=== PATIENT | female | born 1965 | race Caucasian/White ===

== ENCOUNTER 2018-12-03 16:22 | Emergency (ER) | payer BC ==
[2018-12-03] MEDS ORDERED: Oxymetazoline 0.05% Nasal Spray 15 ML Bottle NAS ONE (17:05)
--- NOTE | 2018-12-03 17:53 | EDM.PDOC ---
ED HPI GENERAL MEDICAL PROBLEM - General Chief Complaint: ENT Problem Stated Complaint: NOSE BLEED Time Seen by Provider: 12/03/18 16:22 Source of Information: Reports: Patient, Family History Limitations: Reports: No Limitations - History of Present Illness INITIAL COMMENTS - FREE TEXT/NARRATIVE: 53 y.o.w.f with a h/o HTN came with her friend to the ed due to a right sided nose bleed. Pt applied pressure to her nose without help. Pt stated, she was picking an objet from the floor when suddenly the bleed of her nose started. No N/V/D no dizziness no C/P, pt take 81 mg of ASA daily. No other acute medical issues. 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 - Related Data Allergies Allergy/AdvReac Type Severity Reaction Status Date / Time No Known Allergies Allergy Verified 12/03/18 17:37 Home Meds: Home Meds Albuterol [Ventolin HFA] 2 puff INH Q4H PRN 12/03/18 [History] Ibuprofen [Motrin] 600 mg PO DAILY PRN 12/03/18 [History] Losartan/Hydrochlorothiazide [Losartan-HCTZ 50-12.5 MG] 1 each PO DAILY [History] Simvastatin [Zocor] 40 mg PO BEDTIME 12/03/18 [History] ED ROS ENT - Review of Systems Review Of Systems: See Below Constitutional: Reports: No Symptoms HEENT: Reports: Nosebleed Respiratory: Reports: No Symptoms Cardiovascular: Reports: No Symptoms Endocrine: Reports: No Symptoms GI/Abdominal: Reports: No Symptoms : Reports: No Symptoms Musculoskeletal: Reports: No Symptoms Skin: Reports: No Symptoms Neurological: Reports: No Symptoms Psychiatric: Reports: No Symptoms Hematologic/Lymphatic: Reports: No Symptoms Immunologic: Reports: No Symptoms ED EXAM, ENT - Physical Exam Exam: See Below Exam Limited By: No Limitations General Appearance: Alert, WD/WN, Mild Distress Eye Exam: Bilateral Eye: Normal Inspection Ears: Normal External Exam Nose: Other (minor right sided anterior nose bleed) Mouth/Throat: Normal Inspection, Normal Lips Head: Atraumatic, Normocephalic Neck: Normal Inspection, Supple, Non-Tender, Full Range of Motion Respiratory/Chest: No Respiratory Distress, Lungs Clear, Normal Breath Sounds Cardiovascular: Normal Peripheral Pulses, Regular Rate, Rhythm, No Edema, No Gallop GI/Abdominal: Normal Bowel Sounds, Soft, Non-Tender, No Organomegaly, Pelvis Stable (Female) Exam: Deferred Rectal (Female) Exam: Deferred Back: Normal Inspection, Full Range of Motion Extremities: Normal Inspection, Normal Range of Motion, Non-Tender Neurological: Alert, Oriented, CN II-XII Intact, Normal Cognition, Normal Gait Psychiatric: Normal Affect, Normal Mood Skin: Warm, Dry, Intact, Normal Color, No Rash Lymphatic: No Adenopathy Course - Vital Signs Text/Narrative:: 53 y.o.w.f with a h/o HTN came with her friend to the ed due to a right sided nose bleed. Pt applied pressure to her nose without help. Pt stated, she was picking an objet from the floor when suddenly the bleed of her nose started. No N/V/D no dizziness no C/P, pt take 81 mg of ASA daily. No other acute medical issues. BP 145/93 RR 18 Pulse ox 96% on RA Pulse 124 Temp 36.8 PE: WNWD W F with right sided ant nosebleed Labs/Images: Not indicated Impression: Anterior epistaxis Tx: Ice to forehead, Afrin to right and left nostril. Reexam: Nosebleed subsided Plan: D/C with instructions Last Recorded V/S: Last Vital Signs Temp 36.6 C 12/03/18 17:15 Pulse Resp 18 12/03/18 17:15 BP 139/83 12/03/18 17:35 Pulse Ox 96 12/03/18 17:15 - Orders/Labs/Meds Meds: Medications Discontinued Medications Generic Name Dose Route Start Last Admin Trade Name Freq PRN Reason Stop Dose Admin Oxymetazoline HCl 1 ml 12/03/18 17:05 12/03/18 17:05 Afrin Original 0.05% Nasal [place] NICOLAS 12/03/18 17:06 1 spray ONETIME ONE Administration Departure - Departure Time of Disposition: 17:51 Disposition: Home, Self-Care 01 Condition: Good Clinical Impression: Anterior epistaxis - Discharge Information Referrals: Ricky Amador MD [Primary Care Provider] - Forms: ED Department Discharge, ED Return to Work/School Form Additional Instructions: Please apply ICE to ant forehead, please apply Afrin as recommended, please hold ASA for 1 week, please f/u, come back if your symptoms get worse acutely
== END 2018-12-03 17:56 | disposition home or self-care (01) ==
LOC: FB.ED 16:22
DX: R04.0 Epistaxis (principal)
CPT/HCPCS: 99283; A9270-GY

== ENCOUNTER 2019-04-09 22:28 | Emergency (ER) | payer BC ==
[2019-04-09] MEDS ORDERED: Acetaminophen/HYDROcodone 325-5 MG Tab PO ONE (22:29)
--- NOTE | 2019-04-09 23:09 | EDM.PDOC ---
ED HPI GENERAL MEDICAL PROBLEM - General Stated Complaint: RT ELBOW PAIN Time Seen by Provider: 04/09/19 22:50 Source of Information: Reports: Patient History Limitations: Reports: No Limitations - History of Present Illness INITIAL COMMENTS - FREE TEXT/NARRATIVE: 54-year-old female who reports she was getting up from the table and got her feet tangled at approximate 7 PM tonight and fell landing on her right knee and also her right elbow. She had a scrape on her right knee and some pain in the area but was ambulatory without problems thought she was just having some soreness in her right elbow. However, when she got home she began having increasing pain in her right elbow that was worse with any movement and with palpation of the elbow and it seemed to radiate down her right forearm as well. Was normal sensation in her fingers. She rated the pain as 8-9/10 with movement and palpation. She has no neck or back pain. There are no other associated signs or symptoms. There are no other modifying factors. Onset: Today (7 PM) Duration: Getting Worse Location: Reports: Upper Extremity, Right (Right elbow pain), Lower Extremity, Right (Right knee abrasion and some mild swelling) Quality: Reports: Ache, Throbbing Severity: Moderate (to severe) Improves with: Reports: Immobilization, Rest (Palpation) Worsens with: Reports: Other, Movement Context: Reports: Activity (As above) Associated Symptoms: Reports: No Other Symptoms Treatments SURG RN: Reports: Other (see below) (Nothing) - Related Data Allergies Allergy/AdvReac Type Severity Reaction Status Date / Time No Known Allergies Allergy Verified 12/03/18 17:37 Home Meds: Home Meds Albuterol [Ventolin HFA] 2 puff INH Q4H PRN 12/03/18 [History] Ibuprofen [Motrin] 600 mg PO DAILY PRN 12/03/18 [History] Losartan/Hydrochlorothiazide [Losartan-HCTZ 50-12.5 MG] 1 each PO DAILY [History] Simvastatin [Zocor] 40 mg PO BEDTIME 12/03/18 [History] Hydrocodone/Acetaminophen [Frederic 5-325 Tablet] 1 - 2 each PO Q6H PRN #8 tablet 04/10/19 [Rx] Past Medical History Cardiovascular History: Reports: High Cholesterol, Hypertension Respiratory History: Reports: COPD - Past Surgical History HEENT Surgical History: Reports: Tonsillectomy Social & Family History - Tobacco Use Smoking Status *Q: Current Every Day Smoker - Caffeine Use Caffeine Use: Reports: Coffee - Living Situation & Occupation 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.) ED ROS GENERAL - Review of Systems Review Of Systems: See Below Constitutional: Reports: No Symptoms HEENT: Reports: No Symptoms Respiratory: Reports: No Symptoms Cardiovascular: Reports: No Symptoms Endocrine: Reports: No Symptoms GI/Abdominal: Reports: No Symptoms : Reports: No Symptoms Musculoskeletal: Reports: Leg Pain (Right knee pain), Joint Pain (Right elbow pain) Skin: Reports: Wound (Abrasion on right anterior knee) Neurological: Reports: No Symptoms Hematologic/Lymphatic: Reports: No Symptoms Immunologic: Reports: Other (It has been less than 5 years since her last tetanus immunization.) ED EXAM, GENERAL - Physical Exam Exam: See Below Exam Limited By: No Limitations General Appearance: Alert, WD/WN, Moderate Distress (Pain from elbow) Eye Exam: Bilateral Eye: EOMI, Normal Inspection, PERRL Ears: Normal External Exam, Hearing Grossly Normal Ear Exam: Bilateral Ear: Auricle Normal Nose: Normal Inspection, Normal Mucosa, No Blood Throat/Mouth: Normal Inspection, Normal Lips, Normal Teeth, Normal Gums, Normal Oropharynx, Normal Voice, No Airway Compromise Head: Atraumatic, Normocephalic Neck: Normal Inspection, Supple, Non-Tender, Full Range of Motion Respiratory/Chest: No Respiratory Distress, Lungs Clear, Normal Breath Sounds, No Accessory Muscle Use, Chest Non-Tender Cardiovascular: Normal Peripheral Pulses, Regular Rate, Rhythm, No JVD Peripheral Pulses: 2+: Radial (L), Radial (R) GI/Abdominal: Normal Bowel Sounds, Soft, Non-Tender Back Exam: Normal Inspection Extremities: No Pedal Edema, Normal Capillary Refill, Joint Swelling (Right elbow), Other (Mild anterior right knee) Neurological: Alert, Oriented, CN II-XII Intact, Normal Cognition, No Motor/ Sensory Deficits Skin Exam: Warm, Dry, Normal Color, No Rash, Wound/Incision (Abrasion over her anterior right knee) ED GENERAL MEDICAL PROCEDURES - Splinting Right Upper Extremity Splint Site: Right upper extremity Pre-procedure NV status: Normal Post-procedure NV status: Normal Splint Material: Other (Ortho-Glass) Splint Design: Posterior (Long-arm posterior splint) Applied & Form Fitted By: Provider Provider Post-Splint Application NV Check: NV Status Normal Complications: No Progress/Comments: Well-padded long-arm posterior splint applied to the right upper extremity. Tolerated well without any apparent complications. Course - Orders/Labs/Meds Orders: Active Orders 24 hr Category Date Time Status Elbow 2V Rt [CR] Stat Exams 04/09/19 22:43 Taken - Radiology Interpretation Free Text/Narrative:: Right elbow x-ray shows nondisplaced radial head fracture with a fat pad sign. - Re-Assessments/Exams Free Text/Narrative Re-Assessment/Exam: 04/09/19 23:56: Patient with right radial head fracture that is nondisplaced. She was placed in a long arm posterior glass splint and in a sling. I will send a referral to Dr. Caro, orthopedics. I have also given the patient a take home pack of hydrocodone 5/325 and an additional prescription for 8 more. Departure - Departure Time of Disposition: 00:05 Disposition: Home, Self-Care 01 Condition: Good Clinical Impression: Contusion of right knee, initial encounter, Abrasion, right knee, initial encounter, Abrasion of right elbow, initial encounter, Fall on same level from tripping as cause of accidental injury Fracture of radial head, right, closed Qualifiers: Encounter type: initial encounter Fracture alignment: nondisplaced Qualified Code(s): S52.124A - Nondisplaced fracture of head of right radius, initial encounter for closed fracture - Discharge Information Prescriptions: Hydrocodone/Acetaminophen [Frederic 5-325 Tablet] 1 - 2 each PO Q6H PRN #8 tablet PRN Reason: Moderate to severe pain Instructions: Radial Head Fracture, [id number], Abrasion, [id number], Contusion, [id number] Referrals: Ricky Amador MD [Primary Care Provider] - Osvaldo Caro DO [Physician] - Forms: ED Return to Work/School Form Additional Instructions: You have a fracture of the radial head in your right elbow area. It is nondisplaced. You will need to follow-up with an orthopedic doctor and I have referred you to Dr. Caro. His office should call you with an appointment. You may also follow up with any orthopedic doctor that you prefer in [place] if you wish. You would need to do so this week if possible. Leave the splint intact. Use the sling for comfort and support. You may take ibuprofen 800 mg by mouth every 8 hours as needed for pain. Medication as prescribed for more severe pain (hydrocodone 5/325). Back to the emergency department for cool/blue/numb right hand, marked increase in pain, redness or any other signs of infection from the wounds or any other concerning sign or symptom. - My Orders Last 24 Hours: My Active Orders 04/09/19 22:43 Elbow 2V Rt [CR] Stat - Assessment/Plan Last 24 Hours: My Active Orders 04/09/19 22:43 Elbow 2V Rt [CR] Stat
== END 2019-04-10 00:20 | disposition home or self-care (01) ==
LOC: FB.ED 22:28
DX: S52.124A Nondisplaced fracture of head of right radius, initial encounter for closed fracture (principal); S80.01XA Contusion of right knee, initial encounter; E78.00 Pure hypercholesterolemia, unspecified; I10 Essential (primary) hypertension; F17.200 Nicotine dependence, unspecified, uncomplicated; J44.9 Chronic obstructive pulmonary disease, unspecified; Z79.899 Other long term (current) drug therapy; W01.0XXA Fall on same level from slipping, tripping and stumbling without subsequent striking against object, initial encounter
CPT/HCPCS: 29105; 73070; 99283; A9270